=== PATIENT | female | born 2000 | race Caucasian/White ===

== ENCOUNTER 2020-04-09 19:03 | Observation (INO) | payer OTHER ==
--- NOTE | 2020-04-09 19:43 | ED ---
Female Urogenital HPI - General Chief complaint: Vaginal Bleeding Stated complaint: 19 wks preg - Vaginal Bleeding Time Seen by Provider: 04/09/20 19:07 Source: patient Mode of arrival: ambulatory Limitations: no limitations - History of Present Illness Initial comments: 20yo female presenting for cc of bleeding in . pt staes she is 19weeks today. she states she had sex with her significant other at 2PM at 4PM she states she had light spotting. She states it increased to about the same amount as a period at 630PM, denies cramping, pain or clotting. She denies extremely heavy bleeding, lightheadedness, weakness, or headaches. Pt States that she has no additional symptoms. Pt states she is A+. See Dr Toribio and had a scheduled US for tomorrow. Patient on arrival appears nontoxic, no distress. Last Menstrual Period: 11/29/19 - Related Data Home Medications Medication Instructions Recorded Confirmed Tbi-Ponp-Isdct Acid 1 cap PO DAILY 04/09/20 04/09/20 [-U Capsule (formulary)] Allergies Allergy/AdvReac Type Severity Reaction Status Date / Time clindamycin Allergy Unknown Verified 04/09/20 21:48 Penicillins Allergy Unknown Verified 04/09/20 21:48 sulfamethoxazole Allergy Unknown Verified 04/09/20 21:48 [From Bactrim] trimethoprim [From Bactrim] Allergy Unknown Verified 04/09/20 21:48 Review of Systems ROS Statement: Those systems with pertinent positive or pertinent negative responses have been documented in the HPI. ROS Other: All systems not noted in ROS Statement are negative. Past Medical History Past Medical History: No Reported History History of Any Multi-Drug Resistant Organisms: None Reported Past Surgical History: No Surgical Hx Reported Past Psychological History: No Psychological Hx Reported Smoking Status: Never smoker Past Alcohol Use History: None Reported Past Drug Use History: None Reported General Exam - General Exam Comments Initial Comments: General: The patient is awake and alert, in no distress Eye: Pupils are equal, round and reactive to light, extra-ocular movements are intact. No nystagmus. There is normal conjunctiva bilaterally. No signs of icterus. Ears, nose, mouth and throat: There are moist mucous membranes and no oral lesions. Neck: The neck is supple, there is no tenderness or JVD. Cardiovascular: There is a regular rate and rhythm. No murmur, rub or gallop is appreciated. Respiratory: Lungs are clear to auscultation, respirations are non-labored, breath sounds are equal. No wheezes, stridor, rales, or rhonchi. Gastrointestinal: Soft, non-distended, non-tender abdomen without masses or organomegaly noted. There is no rebound or guarding present. / Small clots in vault, moderate amount of blood, dark in color. Some of clots vs placenta appears to be coming from os. no pain. Musculoskeletal: Normal ROM, no tenderness. Strength 5/5. Sensation intact. Radial pulses equal bilaterally 2+. Neurological: A&O x 3. CN II-XII intact grossly, There are no obvious motor or sensory deficits. Coordination appears grossly intact. Speech is normal. Skin: Skin is warm and dry and no rashes or lesions are noted. Psychiatric: Cooperative, appropriate mood & affect, normal judgment. Limitations: no limitations Course Vital Signs 04/09/20 04/09/20 19:05 22:10 Temperature 98.8 F 98.8 F Pulse Rate 105 H 90 Respiratory 18 18 Rate Blood Pressure 133/87 128/87 O2 Sat by Pulse 99 99 Oximetry Medical Decision Making - Medical Decision Making Leukocytosis, HgB and VS stable. Pt dneies pain or cramping. Bleeding mild- moderate. Pt has concerning matter coming from os. US shortened cervix. consu lted OBGYN who did exam-concern due to 2-3cm of dilation for threatened with cervical incompetence. Patient admitted for further obstetric care. Dr Quinteros attending agreeable to care plan Yoni Toribio in [place] states that he will place all admitting orders. - Lab Data Result diagrams: 04/09/20 19:45 04/09/20 19:45 Lab Results 04/09/20 04/09/20 04/09/20 Range/Units 19:43 19:45 19:45 WBC 15.5 H (4.0-11.0) k/uL RBC 4.73 (3.80-5.40) m/uL Hgb 12.8 (11.4-16.0) gm/dL Hct 39.3 (34.0-46.0) % MCV 83.0 (80.0-100.0) fL MCH 27.1 (25.0-35.0) pg MCHC 32.7 (31.0-37.0) g/dL RDW 14.8 (11.5-15.5) % Plt Count 227 (150-450) k/uL MPV 8.9 Neutrophils % 80 % Lymphocytes % 14 % Monocytes % 4 % Eosinophils % 1 % Basophils % 0 % Neutrophils # 12.4 H (1.3-7.7) k/uL Lymphocytes # 2.2 (1.0-4.8) k/uL Monocytes # 0.6 (0-1.0) k/uL Eosinophils # 0.2 (0-0.7) k/uL Basophils # 0.0 (0-0.2) k/uL Sodium 137 (137-145) mmol/L Potassium 4.8 (3.5-5.1) mmol/L Chloride 106 (98-107) mmol/L Carbon Dioxide 20 L (22-30) mmol/L Anion Gap 11 mmol/L BUN 8 (7-17) mg/dL Creatinine 0.48 L (0.52-1.04) mg/dL Est GFR (CKD-EPI)AfAm >90 (>60 ml/min/1.73 sqM) Est GFR (CKD-EPI)NonAf >90 (>60 ml/min/1.73 sqM) Glucose 94 (74-99) mg/dL Calcium 9.5 (8.4-10.2) mg/dL Total Bilirubin 0.4 (0.2-1.3) mg/dL AST 23 (14-36) U/L ALT 13 (4-34) U/L Alkaline Phosphatase 71 (38-126) U/L Total Protein 7.0 (6.3-8.2) g/dL Albumin 3.8 (3.5-5.0) g/dL Urine Color Yellow Urine Appearance Clear (Clear) Urine pH 6.0 (5.0-8.0) Ur Specific [place] 1.020 (1.001-1.035) Urine Protein Trace H (Negative) Urine Glucose (UA) Negative (Negative) Urine Ketones Negative (Negative) Urine Blood Large H (Negative) Urine Nitrite Negative (Negative) Urine Bilirubin Negative (Negative) Urine Urobilinogen <2.0 (<2.0) mg/dL Ur Leukocyte Esterase Small H (Negative) Urine RBC >182 H (0-5) /hpf Urine WBC 12 H (0-5) /hpf Ur Squamous Epith Cells <1 (0-4) /hpf Urine Mucus Rare H (None) /hpf Blood Type Blood Type Recheck Bld Type Recheck Status 04/09/20 Range/Units 19:45 WBC (4.0-11.0) k/uL RBC (3.80-5.40) m/uL Hgb (11.4-16.0) gm/dL Hct (34.0-46.0) % MCV (80.0-100.0) fL MCH (25.0-35.0) pg MCHC (31.0-37.0) g/dL RDW (11.5-15.5) % Plt Count (150-450) k/uL MPV Neutrophils % % Lymphocytes % % Monocytes % % Eosinophils % % Basophils % % Neutrophils # (1.3-7.7) k/uL Lymphocytes # (1.0-4.8) k/uL Monocytes # (0-1.0) k/uL Eosinophils # (0-0.7) k/uL Basophils # (0-0.2) k/uL Sodium (137-145) mmol/L Potassium (3.5-5.1) mmol/L Chloride (98-107) mmol/L Carbon Dioxide (22-30) mmol/L Anion Gap mmol/L BUN (7-17) mg/dL Creatinine (0.52-1.04) mg/dL Est GFR (CKD-EPI)AfAm (>60 ml/min/1.73 sqM) Est GFR (CKD-EPI)NonAf (>60 ml/min/1.73 sqM) Glucose (74-99) mg/dL Calcium (8.4-10.2) mg/dL Total Bilirubin (0.2-1.3) mg/dL AST (14-36) U/L ALT (4-34) U/L Alkaline Phosphatase (38-126) U/L Total Protein (6.3-8.2) g/dL Albumin (3.5-5.0) g/dL Urine Color Urine Appearance (Clear) Urine pH (5.0-8.0) Ur Specific [place] (1.001-1.035) Urine Protein (Negative) Urine Glucose (UA) (Negative) Urine Ketones (Negative) Urine Blood (Negative) Urine Nitrite (Negative) Urine Bilirubin (Negative) Urine Urobilinogen (<2.0) mg/dL Ur Leukocyte Esterase (Negative) Urine RBC (0-5) /hpf Urine WBC (0-5) /hpf Ur Squamous Epith Cells (0-4) /hpf Urine Mucus (None) /hpf Blood Type A Positive Blood Type Recheck No Previous Record Bld Type Recheck Status [facility] ONLY Disposition Clinical Impression: Incompetence of cervix, Threatened Disposition: ADMITTED IP TO THIS [facility] Condition: Stable Is patient prescribed a controlled substance at d/c from ED?: No Time of Disposition: 21:42 Decision to Admit Reason: Admit from EC Decision Date: 04/09/20 Decision Time: 21:43
[2020-04-09] MEDS ORDERED: SODIUM CHLORIDE 0.9% 1,000 ML IV ONE (19:46)
[2020-04-09 19:50] LABS: Basophils % (A) 0 %; Eosinophils # (A) 0.2 k/uL (0-0.7); Eosinophils % (A) 1 %; HCT 39.3 % (34.0-46.0); HGB 12.8 gm/dL (11.4-16.0); Lymphocytes # (A) 2.2 k/uL (1.0-4.8); Lymphocytes % (A) 14 %; MCH 27.1 pg (25.0-35.0); MCHC 32.7 g/dL (31.0-37.0); Mean Platelet Volume 8.9; Monocytes # (A) 0.6 k/uL (0-1.0); Monocytes % (A) 4 %; Neutrophils # (A) 12.4 k/uL (1.3-7.7); Neutrophils % (A) 80 %; Platelet Count 227 k/uL (150-450); RBC 4.73 m/uL (3.80-5.40); RDW 14.8 % (11.5-15.5); WBC 15.5 k/uL (4.0-11.0)
[2020-04-09 19:58] LABS: ALT 13 U/L (4-34); AST 23 U/L (14-36); African American GFR (CKD) >90 (>60 ml/min/1.73 sqM); Albumin 3.8 g/dL (3.5-5.0); Alkaline Phosphatase 71 U/L (38-126); Anion Gap 11 mmol/L; Blood Urea Nitrogen 8 mg/dL (7-17); Calcium 9.5 mg/dL (8.4-10.2); Carbon Dioxide 20 mmol/L (22-30); Chloride 106 mmol/L (98-107); Glucose 94 mg/dL (74-99); Non-African American GFR(CKD) >90 (>60 ml/min/1.73 sqM); Potassium 4.8 mmol/L (3.5-5.1); Sodium 137 mmol/L (137-145); Total Bilirubin 0.4 mg/dL (0.2-1.3)
[2020-04-09] MEDS ORDERED: SODIUM CHLORIDE 0.9% 1,000 ML IV SCH (20:00)
[2020-04-09 20:04] LABS: Appearance,Urine Clear (Clear); Bilirubin,Urine Negative (Negative); Blood,Urine Large (Negative); Color,Urine Yellow; Glucose,Urine (UA) Negative (Negative); Ketones,Urine Negative (Negative); Leukocyte Esterase,Urine Small (Negative); Mucus,Urine Rare /hpf; Nitrite,Urine Negative (Negative); Protein,Urine Trace (Negative); RBC,Urine >182 /hpf (0-5); Squamous Epithelial Cell,Urine <1 /hpf (0-4); Urobilinogen,Urine <2.0 mg/dL (<2.0); WBC,Urine 12 /hpf (0-5)
--- NOTE | 2020-04-09 20:41 | US ---
EXAMINATION TYPE: US OB >= 14 wk fetus DATE OF EXAM: 04/09/2020 COMPARISON: None CLINICAL HISTORY: painVaginal bleeding x 4.5 hours. Pain per order. . TECHNIQUE: Transvaginal (TV) and Transabdominal (TA) GESTATIONAL AGE / DATING Physician Established: (18 weeks/6 days) EDC: 09/04/2020 Dates by LMP: (18 weeks/6 days) EDC: 09/04/2020 Dates by First Scan: This is first scan Dates by Current Scan: (19 weeks/2 days) EDC: 09/01/2020 SURVEY IUP: Single PLACENTA: Posterior PREVIA: Difficult to see placental tip location in relation to cervix. ARNIE: 13.46 cm Normal CERVICAL LENGTH (transabdominal: norm > 3.0cm): Not seen TA. CERVICAL LENGTH (transvaginal: norm> 2.5cm): *Difficult to measure clearly. There appears to be funne ling. Measured at 12.5 mm.* (Supplemental transvaginal imaging performed to verify cervical length.) BIOMETRY PRESENTATION: Vertex LIE: Longitudinal BPD: 4.43 cm 19 weeks / 3 days HC: 17.15 cm 19 weeks / 5 days AC: 14.24 cm 19 weeks / 4 days FL: 3.02 cm 19 weeks / 2 days ESTIMATED WEIGHT IN GRAMS: 295.71 grams ESTIMATED WEIGHT IN LBS/OZ: 0 lbs. 10 oz. WEIGHT PERCENTAGE BASED ON ESTABLISHED DATES: 81.9% HC/AC: 1.20 Normal FL/AC: 21.20 HEART RATE: 166 bpm RHYTHM: Normal See cervix notes above. IMPRESSION: Ultrasound gestational age is 19 weeks and 2 days. No definite complicating process.
--- NOTE | 2020-04-09 21:05 | US ---
EXAMINATION TYPE: US OB TV Cervical Measurement DATE OF EXAM: 04/09/2020 COMPARISON: NONE REASON FOR EXAM: Per Ordering Physician?this transvaginal scan is to assess the CERVICAL LENGTH for i ncompetence or funneling. GESTATIONAL AGE / DATING Physician Established: (18 weeks/6 days) EDC: 09/04/2020 Dates by Current Scan: 19 weeks 2 days. EDC: 09/01/2020 MATERNAL/ SURVEY CERVICAL LENGTH (transvaginal: norm> 2.5cm): *Difficult to measure clearly. There appears to be funneling. Measured at 12.5 mm.* Ultrasound evidence of shortened cervix? There does appear to be evidence of shortened cervix. Ultrasound evidence of funneling? Yes PRESENTATION: Vertex LIE: Longitudinal HEART RATE: 166 bpm RHYTHM: Normal See OB >14 weeks exam for images. IMPRESSION: Sagittal image 32 shows internal cervical os that measures 9 mm. There is fluid that measures 4.5 cm in thickness related could be Fluid in the vaginal vault. There is probably effacement of the cervix. The gestational sac does not appear to be herniating into the internal cervical os.
[2020-04-09] MEDS ORDERED: NALOXONE 0.4 MG/ML 1 ML VIAL IV PRN (21:43)
[2020-04-09] MEDS ORDERED: LACTATED RINGERS 1,000 ML IV ONE (22:06)
--- NOTE | 2020-04-09 22:27 | P.HPOB ---
History of Present Illness H&P Date: 04/09/20 Chief Complaint: Vaginal bleeding and This patient is a pleasant 20-year-old 1 para 0 female estimated date of confinement 09/04/2020 estimated gestational age 18-6/7 weeks who presented to the emergency department this evening with complaints of bleeding after intercourse. Patient states that she's had intercourse in approximately 2 hours later began having some bleeding. Initially there was no cramping however after arrival in the emergency department she began having some cramping as well. Patient's care is complicated by a positive chlamydial culture for which she was treated and had a negative test of cure. otherwise has been uncomplicated. Evaluation in the emergency department shows the patient to have some dark red bleeding from the cervix. Cervix visually is dilated with membranes at the os. Digital exam shows her to be 2-3 cm dilated approximate 50% effaced. Review of Systems Genitourinary: Reports as per HPI, Reports abnormal vaginal bleeding, Reports Past Medical History Past Medical History: No Reported History History of Any Multi-Drug Resistant Organisms: None Reported Past Surgical History: No Surgical Hx Reported Past Psychological History: No Psychological Hx Reported Smoking Status: Former smoker Past Alcohol Use History: None Reported Past Drug Use History: None Reported Medications and Allergies Home Medications Medication Instructions Recorded Confirmed Type Zpw-Jvot-Elyxh Acid 1 cap PO DAILY 04/09/20 04/09/20 History [-U Capsule (formulary)] Allergies Allergy/AdvReac Type Severity Reaction Status Date / Time clindamycin Allergy Unknown Verified 04/09/20 21:48 Penicillins Allergy Unknown Verified 04/09/20 21:48 sulfamethoxazole Allergy Unknown Verified 04/09/20 21:48 [From Bactrim] trimethoprim [From Bactrim] Allergy Unknown Verified 04/09/20 21:48 Exam Vital Signs Temp Pulse Resp BP Pulse Ox 04/09/20 19:05 98.8 F 105 H 18 133/87 99 Intake and Output 04/09/20 04/09/20 04/09/20 06:59 14:59 22:59 Other: Weight 111.13 kg - OBG Physical Exam Abdomen: bowel sounds normal, no diffuse tenderness, no bruit present, no guarding noted, no hepatomegaly, no splenomegaly, no mass Vulva: both: normal Cervix: Cervix is 2-3 cm dilated approximately 50% effaced soft membranes at the os Uterus: enlarged Results blood work shows she is a positive, rubella immune, RPR is nonreactive, hepatitis B negative, HIV is nonreactive, she had a positive chlamydia in January with a negative test of cure in February. Ultrasounds consistent with gestational age Result Diagrams: 04/09/20 19:45 04/09/20 19:45 Abnormal Lab Results - Last 24 Hours (Table) 04/09/20 04/09/20 04/09/20 Range/Units 19:43 19:45 19:45 WBC 15.5 H (4.0-11.0) k/uL Neutrophils # 12.4 H (1.3-7.7) k/uL Carbon Dioxide 20 L (22-30) mmol/L Creatinine 0.48 L (0.52-1.04) mg/dL Urine Protein Trace H (Negative) Urine Blood Large H (Negative) Ur Leukocyte Esterase Small H (Negative) Urine RBC >182 H (0-5) /hpf Urine WBC 12 H (0-5) /hpf Urine Mucus Rare H (None) /hpf Assessment and Plan Assessment: This is a pleasant 20-year-old 1 para 0 female 18-6/7 weeks gestation presenting with clinical history most consistent with incompetent cervix. She is however having bleeding and cramping at this time so certainly we cannot rule out labor. I've had a long discussion with the patient and her partner in the understand at this point she is considered previable and that the only treatment at this gestational age is expectant management. I am going to prophylactically treat her with a 48-hour course of antibiotics. Due to her multiple ALLERGIES I'm going to give her Ancef and oral erythromycin. Patient does live a distance from the hospital therefore think it is safest to observe for at least 1-2 days. Patient understands that if she goes on to deliver there is a chance that she could have retained placental products requiring Hemabate induction and/or dilation and curettage. At this point her bleeding is from the cervical change. All the patient's questions are answered and the plan of treatment understood. (1) Threatened Current Visit: Yes Status: Acute Code(s): O20.0 - THREATENED SNOMED Code(s): 47984357 (2) Incompetence of cervix Current Visit: Yes Status: Acute Code(s): N88.3 - INCOMPETENCE OF CERVIX UTERI SNOMED Code(s): 16382836
[2020-04-09 22:38] VITALS: RESP 16
[2020-04-10] MEDS ORDERED: ERYTHROMYCIN 250 MG TAB PO SCH
[2020-04-10] MEDS: BUTORPHANOL 1 MG/ML 1 ML VIAL IV PRN ×2 (01:49→03:39)
[2020-04-10] MEDS ORDERED: CARBOPROST TROMETHAMINE 250 MCG/ML 1 ML AMP IM ONE (04:20)
--- NOTE | 2020-04-10 04:44 | P.PROBDLV ---
Vaginal Delivery Note - . Vaginal Delivery Note: Normal vaginal delivery of a nonviable male fetus at 0351 hrs. Please see dictated H&P for intimate details of this patient's admission. Brief summary is a pleasant 20-year-old 1 para 0 female 18-6/7 weeks who is admitted to labor and delivery through the emergency department earlier tonight with premature's cervical dilation, questionable cervical incompetence and threatened . Patient is admitted and she begins having cramping therefore is given some IV pain medications. Patient's subsequent goes on to deliver a nonviable male fetus in the presence of the nurse. The placenta subsequently thereafter follows. I did inspect the perineum and the vaginal cervical area there is no evidence of any lacerations. Inspection of the placenta shows appears to be complete and intact. She did have some bleeding which responded to Hemabate. At the time of this dictation the fetus although nonviable does still have a heartbeat we'll continue to be with the mother. All counts correct 3. There are no complications.
[2020-04-10] MEDS ORDERED: BENZOCAINE/MENTHOL SPRAY 1 GM/SPRAY AEROSOL TOPICAL PRN (04:50)
[2020-04-10] MEDS ORDERED: SIMETHICONE 80 MG CHEWABLE PO PRN (04:50)
[2020-04-10] MEDS ORDERED: diphenhydrAMINE 50 MG/ML 1 ML VIAL IVP PRN (04:50)
[2020-04-10] MEDS ORDERED: bisacodyL 10 MG SUPP RECTAL PRN (04:50)
[2020-04-10] MEDS ORDERED: ACETAMINOPHEN TAB 325 MG TAB PO PRN (04:50)
[2020-04-10] MEDS ORDERED: IBUPROFEN 600 MG TAB PO PRN (04:50)
[2020-04-10] MEDS ORDERED: HYDROCORTISONE 2.5% RECTAL CREAM 30 GM TUBE RECTAL PRN (04:50)
[2020-04-10] MEDS ORDERED: LANOLIN CREAM 5 GM TUBE TOPICAL PRN (04:50)
[2020-04-10] MEDS ORDERED: ZOLPIDEM 5 MG TAB PO PRN (04:50)
[2020-04-10] MEDS ORDERED: diphenhydrAMINE 25 MG CAP PO PRN (04:50)
[2020-04-10 06:56] LABS: Basophils % (A) 0 %; Eosinophils # (A) 0.1 k/uL (0-0.7); Eosinophils % (A) 0 %; HCT 36.2 % (34.0-46.0); HGB 12.1 gm/dL (11.4-16.0); Lymphocytes # (A) 1.6 k/uL (1.0-4.8); Lymphocytes % (A) 7 %; MCHC 33.5 g/dL (31.0-37.0); MCV 83.5 fL (80.0-100.0); Mean Platelet Volume 8.8; Monocytes # (A) 0.5 k/uL (0-1.0); Monocytes % (A) 2 %; Neutrophils % (A) 90 %; Platelet Count 251 k/uL (150-450); RBC 4.34 m/uL (3.80-5.40); RDW 14.7 % (11.5-15.5); WBC 22.3 k/uL (4.0-11.0)
[2020-04-10] MEDS ORDERED: SENNOSIDES-DOCUSATE SODIUM 1 EACH TAB PO SCH (08:00)
--- NOTE | 2020-04-10 10:42 | P.PN ---
Progress Note - Text Progress Note Date: 04/10/20 Patient is resting and having normal lochia. She wishes to go home. Vital signs are stable she is afebrile. Plan is to discharge home later this morning.
--- NOTE | 2020-04-10 10:44 | P.DS ---
Providers Date of admission: 04/09/20 21:46 Expected date of discharge: 04/10/20 Attending physician: Marlo Toribio Primary care physician: Stated None - Discharge Diagnosis(es) (1) Threatened Current Visit: Yes Status: Acute (2) Incompetence of cervix Current Visit: Yes Status: Acute Hospital Course: Please see dictated H&P for details of this patient's admission. Brief summary is a pleasant 20-year-old 1 para 0 female 18-6/7 weeks gestation admitted to labor and delivery from the emergency department for premature cervical dilation and labor. Patient given IV antibiotics and watched expectantly. Patient quickly does begin having cramping and more bleeding and progresses to quickly deliver a nonviable male fetus. Please see dictated delivery note. patient does well was felt to be stable for discharge home follow up with me in 6 weeks. Procedures: Normal vaginal delivery Patient Condition at Discharge: Good Plan - Discharge Summary Discharge Rx Participant: No New Discharge Prescriptions: New Ibuprofen [Motrin] 600 mg PO Q6HR PRN #30 tab PRN Reason: Mild Pain Or Fever >= 100.5 No Action Lyh-Sckg-Maaec Acid [-U Capsule (formulary)] 1 cap PO DAILY Discharge Medication List Dtc-Qlam-Njzam Acid [-U Capsule (formulary)] 1 cap PO DAILY 04/09/20 [History] Ibuprofen [Motrin] 600 mg PO Q6HR PRN #30 tab 04/10/20 [Rx] Follow up Appointment(s)/Referral(s): aMrlo Toribio MD [STAFF PHYSICIAN] - 6 Weeks Patient Instructions/Handouts: Vaginal Delivery (DC) Activity/Diet/Wound Care/Special Instructions: No intercourse or anything per vagina for 6 weeks. Please call if any fever, chills, excessive vaginal bleeding, and/or abdominal pain. Discharge Disposition: HOME SELF-CARE
[2020-04-10 12:05] VITALS: BP 105/64; PULSE 78; TEMP 97.8
== END 2020-04-10 12:20 | disposition home or self-care (01) ==
LOC: EC 19:03 → 4FBP 21:46
PROVIDERS: ADMIT Obstetrics & Gynecology; ATTEND Obstetrics & Gynecology
DX: O20.0 Threatened abortion (principal); O34.32 Maternal care for cervical incompetence, second trimester; Z3A.18 18 weeks gestation of pregnancy; Z88.0 Allergy status to penicillin; Z88.1 Allergy status to other antibiotic agents; Z88.2 Allergy status to sulfonamides; Z87.891 Personal history of nicotine dependence; Z86.19 Personal history of other infectious and parasitic diseases
CPT/HCPCS: 96376; 96365; 96366; 96375; 99285; 36415; 86900; 86901; 88305; 80053; 85025 ×2; 81001; 87086; 76805; 76817; G0378 ×2; J0595; J0690